=== PATIENT | female | born 2000 | race Caucasian/White ===

== ENCOUNTER 2020-12-10 09:57 | Emergency (ER) | payer OTHER ==
[~2020-12-10] VITALS: Ht 160 cm; Wt 90.9 kg
[2020-12-10 11:02] LABS: BASO # 0.1 (0.0-0.2); BASO % 0.4 % (0.0-2.0); EOS % 0.2 % (0-4.0); GRAN # 10.7 (1.4-6.5); GRAN % 76.5 % (42.2-75.2); HEMATOCRIT 38.9 % (35.0-45.0); HEMOGLOBIN 13.1 g/dl (12.0-15.0); LYMPH # 1.8 (1.2-3.4); LYMPH % 13.2 % (20.0-51.0); MEAN CELL VOLUME 88 fl (80.0-95.0); MEAN CORPUSCULAR HEMOGLOBIN 30 pg (26.0-32.0); MEAN CORPUSCULAR HGB CONC 34 g/dl (33.0-37.0); MEAN PLATELET VOLUME 9.2 fl (7.4-10.4); MONO # 1.3 (0.1-0.6); MONO % 9.3 % (1.7-9.3); PLATELET COUNT 425 K/mm3 (130-400); RED BLOOD COUNT 4.41 M/mm3 (4.10-5.30); REDCELL DISTRIBUTION WIDTH-CV 12.1 % (11.5-14.5)
[2020-12-10] MEDS ORDERED: AMOXICILLIN 50500 MG PO (11:21)
[2020-12-10] MEDS ORDERED: PREDNISONE 5MG5 MG PO (11:23)
[2020-12-10] MEDS ORDERED: PEN-VEE K500 MG PO (11:24)
[2020-12-10 12:48] VITALS: BP 147/63; PULSE 97; TEMP 98.6
== END 2020-12-10 12:44 | disposition home or self-care (01) ==
LOC: COL.ER 09:57
PROVIDERS: Nurse Practitioner Primary Care
DX: J36 Peritonsillar abscess (principal)
CPT/HCPCS: J1100; J7030

== ENCOUNTER 2021-02-12 07:32 | Emergency (ER) | payer OTHER ==
[~2021-02-12] VITALS: Ht 160 cm; Wt 90.9 kg
[~2021-02-12 07:32] MED LIST: AMOXICILLIN 50500 MG PO; PEN-VEE K500 MG PO; PREDNISONE 5MG5 MG PO
[2021-02-12 07:40] VITALS: TEMP 98.6
[2021-02-12 08:10] LABS: BASO # 0.1 (0.0-0.2); BASO % 0.4 % (0.0-2.0); EOS # 0.1 (0.0-0.7); EOS % 0.5 % (0-4.0); GRAN # 8.1 (1.4-6.5); GRAN % 66.2 % (42.2-75.2); HEMATOCRIT 41.5 % (35.0-45.0); HEMOGLOBIN 13.5 g/dl (12.0-15.0); LYMPH # 2.8 (1.2-3.4); LYMPH % 22.7 % (20.0-51.0); MEAN CELL VOLUME 89 fl (80.0-95.0); MEAN CORPUSCULAR HEMOGLOBIN 29 pg (26.0-32.0); MEAN CORPUSCULAR HGB CONC 33 g/dl (33.0-37.0); MEAN PLATELET VOLUME 9.2 fl (7.4-10.4); MONO # 1.2 (0.1-0.6); PLATELET COUNT 352 K/mm3 (130-400); RED BLOOD COUNT 4.69 M/mm3 (4.10-5.30); REDCELL DISTRIBUTION WIDTH-CV 12.3 % (11.5-14.5)
[2021-02-12 08:20] LABS: ALBUMIN 4.2 gm/dL (3.5-5.0); BILIRUBIN,TOTAL 0.3 mg/dL (0.0-1.0); CREATININE, serum 0.75 (0.52-1.25); POTASSIUM 3.8 mmol/L (3.4-5.0)
[2021-02-12 08:21] LABS: STREP SCREEN NEGATIVE
[2021-02-12 08:26] LABS: MONOSCREEN NEGATIVE
[2021-02-12] MEDS ORDERED: NORCO 325 MG-51 TAB PO (09:41)
[2021-02-12] MEDS ORDERED: PREDNISONE20 MG PO (09:41)
[2021-02-12] MEDS ORDERED: CLEOCIN HCL300 MG PO (09:41)
[2021-02-12 09:50] VITALS: BP 119/73; PULSE 99
== END 2021-02-12 09:50 | disposition home or self-care (01) ==
LOC: COL.ER 07:32
PROVIDERS: Family Medicine
DX: J03.90 Acute tonsillitis, unspecified (principal); Z79.52 Long term (current) use of systemic steroids
CPT/HCPCS: J2930; J7120